=== PATIENT | male | born 1970 ===

== ENCOUNTER 2017-06-24 08:53 | Day surgery (SDC) | payer OTHER ==
[~2017-06-24 08:53] MED LIST: Acetaminophen TAB* 325 MG PO ONE; Buffered Lidocaine 0.9% SYRIN* 5 ML/SYR SYRINGE INTRADERM ONE; Famotidine IV* 10 MG/ML 2 ML (20 mg) IV ONE; Sodium Citrate/Citric Acid* 15 ML UDC PO ONE
[2017-06-24] MEDS ORDERED: Sodium Citrate/Citric Acid* 15 ML UDC ONE (09:18)
[2017-06-24] MEDS ORDERED: ceFAZolin 2 GM PREMIX (*) 2 GM/50 ML BAG IVPB ONE (09:18)
[2017-06-24] MEDS ORDERED: Famotidine IV* 10 MG/ML 2 ML (20 mg) ONE (09:18)
[2017-06-24] MEDS ORDERED: Acetaminophen TAB* 325 MG ONE (09:18)
[2017-06-24] MEDS ORDERED: Buffered Lidocaine 0.9% SYRIN* 5 ML/SYR SYRINGE ONE (09:19)
[2017-06-24] MEDS ORDERED: ceFAZolin 1 GM in Dextrose (*) 1 GM/50 ML BAG IVPB ONE (09:19)
[2017-06-24] MEDS ORDERED: Ondansetron INJ* 2 MG/ML VIAL IV PRN (10:37)
[2017-06-24] MEDS ORDERED: PROCHLORPERAZINE INJ 5 MG/ML 2 ML VIAL IV PRN (10:37)
[2017-06-24] MEDS ORDERED: oxyCODONE/Acetamin 5/325 MG* TAB PO PRN (10:37)
[2017-06-24] MEDS ORDERED: Ibuprofen TAB* 600 MG PO PRN (10:37)
[2017-06-24] MEDS ORDERED: DiMENhydriNATE IV* 50 MG/ML VIAL IV PUSH PRN (10:37)
[2017-06-24] MEDS ORDERED: HYDROcodone/ACETAMIN 5-325 MG* 1 TAB PO PRN (10:37)
[2017-06-24] MEDS ORDERED: fentaNYL* 50 MCG/ML 2 ML VIAL (100 MCG VIAL) ONE ×2 (10:52→13:14)
[2017-06-24] MEDS ORDERED: Midazolam* 1 MG/ML 2 ML VIAL (2 MG) ONE (10:52)
[2017-06-24] MEDS ORDERED: Rocuronium* 10 MG/ML VIAL ONE (10:57)
[2017-06-24] MEDS ORDERED: Bupivacaine 0.5% SDV PF* 30 ML VIAL ONE (11:25)
[2017-06-24] MEDS ORDERED: Ondansetron INJ* 2 MG/ML VIAL ONE (12:30)
[2017-06-24] MEDS ORDERED: Sterile Water for Inj* 10 ML ONE (12:30)
[2017-06-24] MEDS ORDERED: Gelfoam Sponge SIZE 100* SPONGE ONE (12:30)
[2017-06-24] MEDS ORDERED: EPHEDrine (Pressors)* 50 MG/ML VIAL ONE (12:30)
[2017-06-24] MEDS ORDERED: Glycopyrrolate IV* 0.2 MG/ML 1 ML VIAL ONE (12:30)
[2017-06-24] MEDS ORDERED: Lidocaine 2% PF * 5 ML VIAL ONE (12:30)
[2017-06-24] MEDS ORDERED: Propofol* 10 MG/ML 20 ML BTL IV PUSH ONE (12:30)
[2017-06-24] MEDS ORDERED: Ketorolac INJ* 30 MG/ML 1 ML VIAL ONE (12:30)
[2017-06-24] MEDS ORDERED: oxyCODONE TAB* 5 MG TAB ONE ×2 (13:14→14:31)
[2017-06-24] MEDS: fentaNYL* 50 MCG/ML 2 ML VIAL (100 MCG VIAL) IV PRN ×2 (13:16→13:46)
[2017-06-24] MEDS: oxyCODONE TAB* 5 MG TAB PO PRN ×2 (13:46→14:32)
[2017-06-24] MEDS ORDERED: HYDROmorphone INJ* 1 MG/ML CARPUJECT SYRINGE ONE (13:59)
[2017-06-24] MEDS: HYDROmorphone INJ* 1 MG/ML CARPUJECT SYRINGE IV PRN ×2 (14:00→14:30)
[2017-06-24 15:20] VITALS: BP 141/82
--- NOTE | 2017-06-25 07:21 | OP ---
DATE OF OPERATION: 06/24/17 - [facility] DATE OF : 66 SURGEON: Mikey Kulkarni MD ENVIRONMENTAL SERVICES LEAD: Rosette Donaldson PA-C ANESTHESIA: General PRE-OP DIAGNOSIS: Left tibiotalar arthrosis. POST-OP DIAGNOSIS: Left tibiotalar arthrosis. OPERATIVE PROCEDURE: Left tibiotalar fusion. DESCRIPTION OF PROCEDURE: The patient was taken to the operating room where longitudinal incision was made over the distal fibula. We reflected a full- thickness flap off the anterior aspect of the ankle joint using a Loving elevator to open the joint and a lamina director of staff development to hold it open. We prepared for arthrodesis using a 4-mm power bur. We harvested some cancellous bone from the distal fibula and then also prepared some crushed cancellous allograft and a small amount of DBX bone putty mixing it with the autograft. This was placed along the tibiotalar joint, which was then fixed in a neutral position using paired 6.5-mm cannulated screws and washers. Good compression and alignment was obtained and verified with C-arm. We then irrigated the deep tissues closing with 0 Vicryl, 2-0 Vicryl, and dayna for the skin and compression dressing and plaster splint applied. [id number]/[facility] #: [id number] MTDPhillip
--- NOTE | 2017-06-25 09:58 | RAD ---
INDICATION: Osteoarthritis, left ankle fusion COMPARISONS: April 24, 2017 TECHNIQUE: Fluoroscopy was provided for a surgical procedure. Total fluoroscopy time is: 6.1 seconds FINDINGS: A spot image demonstrates fusion across the tibiotalar articulation. IMPRESSION: FLUOROSCOPY WAS PROVIDED FOR A SURGICAL PROCEDURE CPT II Codes: 6045F
== END 2017-06-24 15:44 | disposition home or self-care (01) ==
LOC: OR 08:53
PROVIDERS: ATTEND Orthopaedic Surgery
DX: M19.072 Primary osteoarthritis, left ankle and foot (principal); E11.9 Type 2 diabetes mellitus without complications; Z79.84 Long term (current) use of oral hypoglycemic drugs; I10 Essential (primary) hypertension; E78.5 Hyperlipidemia, unspecified; R06.83 Snoring; I69.359 Hemiplegia and hemiparesis following cerebral infarction affecting unspecified side
CPT/HCPCS: 76000; A9270-GY; C1713; C1776; C9359; J0690; J1170; J1885; J2250; J2405; J2704; J3010

== ENCOUNTER 2017-10-21 06:04 | Day surgery (SDC) | payer OTHER ==
[~2017-10-21 06:04] MED LIST changes: -Acetaminophen TAB* 325 MG PO ONE; -Famotidine IV* 10 MG/ML 2 ML (20 mg) IV ONE; +Famotidine TAB* 20 MG PO ONE; +Metoclopramide TAB* 10 MG PO ONE; -Sodium Citrate/Citric Acid* 15 ML UDC PO ONE
[2017-10-21] MEDS ORDERED: Famotidine TAB* 20 MG ONE (06:54)
[2017-10-21] MEDS ORDERED: ceFAZolin 2 GM PREMIX (*) 2 GM/50 ML BAG IVPB ONE (06:55)
[2017-10-21] MEDS ORDERED: Buffered Lidocaine 0.9% SYRIN* 5 ML/SYR SYRINGE ONE (06:55)
[2017-10-21] MEDS ORDERED: Metoclopramide TAB* 10 MG ONE (06:55)
[2017-10-21] MEDS ORDERED: Lidocaine 2% PF * 5 ML VIAL ONE (07:07)
[2017-10-21] MEDS ORDERED: Midazolam* 1 MG/ML 5 ML VIAL (5 MG) ONE (07:07)
[2017-10-21] MEDS ORDERED: Ketorolac INJ* 30 MG/ML 1 ML VIAL ONE (07:07)
[2017-10-21] MEDS ORDERED: Dexamethasone IV* 4 MG/ML 1 ML (4 MG) ONE (07:07)
[2017-10-21] MEDS ORDERED: Ondansetron INJ* 2 MG/ML VIAL ONE (07:07)
[2017-10-21] MEDS ORDERED: Propofol* 10 MG/ML 20 ML BTL IV PUSH ONE (07:07)
[2017-10-21] MEDS ORDERED: fentaNYL* 50 MCG/ML 2 ML VIAL (100 MCG VIAL) ONE ×2 (07:07→07:41)
[2017-10-21] MEDS ORDERED: ceFAZolin 1 GM in Dextrose (*) 1 GM/50 ML BAG IVPB ONE (07:10)
[2017-10-21] MEDS ORDERED: Bupivacaine 0.5%* 50 ML VIAL ONE (07:12)
[2017-10-21] MEDS ORDERED: EPHEDrine (Pressors)* 50 MG/ML VIAL ONE (07:46)
[2017-10-21] MEDS ORDERED: HYDROmorphone INJ* 1 MG/ML CARPUJECT SYRINGE ONE ×2 (08:10→10:12)
[2017-10-21] MEDS ORDERED: fentaNYL* 50 MCG/ML 2 ML VIAL (100 MCG VIAL) IV PRN (08:20)
[2017-10-21] MEDS ORDERED: DiMENhydriNATE IV* 50 MG/ML VIAL IV PUSH PRN (08:20)
[2017-10-21] MEDS ORDERED: Naloxone* 0.4 MG/ML 1 ML VIAL IV PRN (08:20)
[2017-10-21] MEDS ORDERED: Ondansetron INJ* 2 MG/ML VIAL IV PRN (08:20)
[2017-10-21] MEDS ORDERED: HYDROmorphone INJ* 1 MG/ML CARPUJECT SYRINGE IV PRN (08:20)
[2017-10-21] MEDS ORDERED: oxyCODONE TAB* 5 MG TAB ONE (10:52)
[2017-10-21 11:50] VITALS: BP 142/83
--- NOTE | 2017-10-21 19:01 | RAD ---
INDICATION: Left ankle revision fusion. COMPARISON: Comparison is made with a prior x-ray study of the left ankle from September 11, 2017. TECHNIQUE: 4.2 seconds of intermittent fluoroscopic guidance were provided and 3 spot films of the left ankle were obtained in the operating room. FINDINGS: The films demonstrate metallic plates transfixed with multiple screws which project over the distal tibia, talus and fibula. IMPRESSION: INTRAOPERATIVE CONTROL FILMS. CPT II Codes: G9500
--- NOTE | 2017-10-22 02:14 | OP ---
DATE OF OPERATION: 10/21/17 - [facility] DATE OF : 66 ATTENDING SURGEON: Mikey Kulkarni MD NEWSPAPER COLUMNIST: Rosette Donaldson PA-C PRE-OP DIAGNOSIS: Left tibiotalar nonunion fusion. POST-OP DIAGNOSIS: Left tibiotalar nonunion fusion. OPERATIVE PROCEDURE: Revision of left tibiotalar fusion with Arthrex locking plate and fibular osteotomy and tibial bone graft. DESCRIPTION OF PROCEDURE: The patient was taken to the operating room where we opened up the lateral longitudinal incision over the distal fibula. The fibula was exposed along its anterior aspect and an oblique osteotomy made 6 cm above the joint. This allowed us to rotate the fibula posteriorly to give us full access to the lateral tibiotalar joint. Screws were removed from the subtalar sinus area and we took down the nonunion with a Loving elevator. We then irrigated it thoroughly. Cultures were sent and we prepared the joint for re- arthrodesis using a power sharon. We also had to remove a small amount of the anterior incisura to allow the plate to fit properly. Through a proximal 4-cm incision over Gerdy's tubercle, we harvested cancellous graft and placed this one in the tibiotalar joint as well replacing the graft proximally with some allograft chips. The proximal wound closure consisted of 2-0 Vicryl sutures and dayna for the skin. We then fixed the Arthrex lateral locking plate under compression using distal locking screws, proximal non-locking screws, and a lag screw. Good fixation was obtained overall. We x-rays intraoperatively, it showed good position of the fusion. We then repaired the fibular osteotomy with a one-third tubular plate, irrigating soft tissues and closing with 2-0 Vicryl sutures and dayna. The patient tolerated the above well. [id number]/[facility] #: [id number] [facility]PITALPhillip
== END 2017-10-21 11:53 | disposition home or self-care (01) ==
LOC: OR 06:04
PROVIDERS: ATTEND Orthopaedic Surgery
DX: M96.0 Pseudarthrosis after fusion or arthrodesis (principal); E11.9 Type 2 diabetes mellitus without complications; Z79.84 Long term (current) use of oral hypoglycemic drugs; I10 Essential (primary) hypertension; E03.9 Hypothyroidism, unspecified; K58.9 Irritable bowel syndrome, unspecified; K21.9 Gastro-esophageal reflux disease without esophagitis; I69.354 Hemiplegia and hemiparesis following cerebral infarction affecting left non-dominant side
CPT/HCPCS: 76000; 87070; 87073; 87205; 88300; A9270-GY; C1713; C1776; C9359; J0690; J1100; J1170; J1885; J2250; J2405; J2704; J3010